=== PATIENT | female | born 1970 | race Caucasian/White ===

== ENCOUNTER 2021-08-27 12:55 | Inpatient (IN) | payer BC ==
[2021-08-27] MEDS ORDERED: Sodium Chloride 0.9% 1,000 ML IV ONE (13:13)
[2021-08-27] MEDS ORDERED: Dexamethasone 4 MG/ML SDV IVPUSH ONE (13:14)
[2021-08-27] MEDS ORDERED: Ketorolac 30 MG/ML SDV IVPUSH ONE (13:42)
[2021-08-27] MEDS ORDERED: Ketorolac 30 MG/ML SDV ONE (13:43)
--- NOTE | 2021-08-27 13:55 | CR ---
[id number] RAD/RAD Chest PA or AP 1V EXAM: FRONTAL CHEST INDICATION: DYSPNEA. COMPARISON: None. DISCUSSION: Bilateral patchy bilateral airspace edema and/or infiltrates. Cardiomegaly with mild central vascular congestion. No effusions. IMPRESSION: 1. Patchy bilateral airspace edema and/or infiltrates. Titi Olson MD 08/27/21 [id number] Thank you for allowing us to participate in the care of your patient.
[2021-08-27 14:00] LABS: ANION GAP 16.4 mmol/L (5-15); CHLORIDE,CL 99 mmol/L (98-107); SODIUM,NA 139 mmol/L (136-145)
--- NOTE | 2021-08-27 14:40 | EDM.PDOC ---
ED HPI GENERAL MEDICAL PROBLEM - General Chief Complaint: General Stated Complaint: COVID Time Seen by Provider: 08/27/21 13:38 Source of Information: Reports: Patient History Limitations: Reports: No Limitations - History of Present Illness INITIAL COMMENTS - FREE TEXT/NARRATIVE: 50 YO WF PRESENTS TO ER COMPLAINING OF SHORTNESS OF BREATH WITH FEVER/CHILLS, BODY ACHES AND GENERALIZED WEAKNESS. PT REPORTS SHE BEGAN HAVING SYMPTOMS 08/15/2021 AND WAS DIAGNOSED WITH COVID BY ANTIGEN TEST ON 08/18/2021. PT DENIES GETTING VACCINATED OR RECEIVING MONOCLONAL ANTIBODIES AN OUTPATIENT. PT REPORTS INTERMITTENT EPISODES OF N/V/D. PT STATES SHE FEELS WORSE OVER THE LAST COUPLE OF DAYS. PT HAD A TELEMEDICINE APPOINTMENT TODAY AN WAS INSTRUCTED TO COME TO ER FOR IVF THERAPY. SAO2 ON ARRIVAL WAS 88% RA, Onset Date: 08/15/21 Duration: Getting Worse Location: Reports: Generalized Quality: Reports: Ache Severity: Moderate Improves with: Reports: Medication Worsens with: Reports: Movement Associated Symptoms: Reports: No Other Symptoms, Cough, Fever/Chills, Nausea/Vomiting, Shortness of Breath, Weakness. Denies: Chest Pain Face/Facial Pain Score (Numeric/FACES): 10 - Related Data Allergies Allergy/AdvReac Type Severity Reaction Status Date / Time No Known Allergies Allergy Verified 08/27/21 15:18 Home Meds: Home Meds Famotidine 20 mg PO DAILY 08/27/21 [History] Past Medical History HEENT History: Reports: Epistaxis, Impaired Vision, Sinusitis Gastrointestinal History: Reports: None Genitourinary History: Reports: None HOG SCRAPER History: Reports: Other HOG SCRAPER History: changing menses - feels is perimenopausal Musculoskeletal History: Reports: Fracture Other Musculoskeletal History: L ankle Hematologic History: Reports: Anemia - Infectious Disease History Infectious Disease History: Reports: Chicken Pox - Past Surgical History HEENT Surgical History: Reports: Oral Surgery GI Surgical History: Reports: Cholecystectomy Other GI Surgeries/Procedures: 2008 Female Surgical History: Reports: Section Social & Family History - Tobacco Use Tobacco Use Status *Q: Never Tobacco User - Caffeine Use Caffeine Use: Reports: None - Recreational Drug Use Recreational Drug Use: No ED ROS GENERAL - Review of Systems Review Of Systems: See Below Constitutional: Reports: Fever, Chills, Malaise, Weakness HEENT: Reports: Rhinitis, Throat Pain Respiratory: Reports: Shortness of Breath, Cough Cardiovascular: Reports: No Symptoms Endocrine: Reports: No Symptoms GI/Abdominal: Reports: Diarrhea, Nausea, Vomiting. Denies: Abdominal Pain : Reports: No Symptoms Musculoskeletal: Reports: Muscle Pain Skin: Reports: No Symptoms Neurological: Reports: No Symptoms Psychiatric: Reports: No Symptoms Hematologic/Lymphatic: Reports: No Symptoms Immunologic: Reports: No Symptoms ED EXAM, GENERAL - Physical Exam Exam: See Below Exam Limited By: No Limitations General Appearance: Alert, WD/WN, No Apparent Distress Ears: Normal External Exam, Normal Canal, Hearing Grossly Normal, Normal TMs Ear Exam: Bilateral Ear: Auricle Normal, Canal Normal, TM normal Nose: Clear Rhinorrhea Throat/Mouth: Normal Inspection, Normal Lips, Normal Teeth, Normal Gums, Normal Oropharynx, Normal Voice, No Airway Compromise Head: Atraumatic, Normocephalic Neck: Normal Inspection, Supple, Full Range of Motion, Lymphadenopathy (L), Lymphadenopathy (R), Tender Lateral Respiratory/Chest: No Respiratory Distress, Lungs Clear, Normal Breath Sounds, No Accessory Muscle Use, Chest Non-Tender, Decreased Breath Sounds Cardiovascular: Normal Peripheral Pulses, Regular Rate, Rhythm, No Edema, No Gallop, No JVD, No Murmur, No Rub GI/Abdominal: Normal Bowel Sounds, Soft, Non-Tender, No Organomegaly, No Distention, No Abnormal Bruit, No Mass Back Exam: Normal Inspection, Full Range of Motion, NT Extremities: Normal Inspection, Normal Range of Motion, Non-Tender, Normal Capillary Refill, No Pedal Edema Neurological: Alert, Oriented, CN II-XII Intact, Normal Cognition, Normal Gait, No Motor/Sensory Deficits Psychiatric: Normal Affect, Normal Mood Skin Exam: Warm, Dry, Intact, Normal Color, No Rash Course - Vital Signs Last Recorded V/S: Last Vital Signs Temp 97.5 F 08/27/21 15:18 Pulse 99 08/27/21 15:39 Resp 24 H 08/27/21 15:39 BP 123/85 08/27/21 15:39 Pulse Ox 92 L 08/27/21 15:39 - Orders/Labs/Meds Orders: Active Orders 24 hr Category Date Time Status LIPASE [REF] Stat Lab 08/27/21 13:13 Ordered Sodium Chloride 0.9% [Normal Saline] 100 ml Med 08/27/21 15:00 Active IV ASDIRECTED Medication Orders Sodium Chloride (Normal Saline) 100 mls @ 200 mls/hr IV ASDIRECTED NEO Last Admin: 08/27/21 15:42 Dose: 200 mls/hr Documented by: JUSTICE Labs: Laboratory Tests 08/27/21 08/27/21 08/27/21 Range/Units 13:33 13:33 13:33 WBC 7.34 (5.00-10.00) 10^3/uL RBC 5.37 (3.80-5.50) 10^6/uL Hgb 15.2 (12.0-16.0) g/dL Hct 47.1 H (37.0-47.0) % MCV 87.7 D (82.0-92.0) fL MCH 28.3 (27.0-31.0) pg MCHC 32.3 (32.0-36.0) g/dL RDW 14.4 (11.5-14.5) % Plt Count 227 (150-400) 10^3/uL MPV 9.5 (7.4-10.4) fL Immature Gran % (Auto) 2.0 (0.0-5.0) % Neut % (Auto) 84.8 H (50.0-70.0) % Lymph % (Auto) 7.8 L (20.0-40.0) % Nicol[place] % (Auto) 5.4 (2.0-8.0) % Eos % (Auto) 0.0 L (1.0-3.0) % Baso % (Auto) 0.0 (0.0-1.0) % Neut # (Auto) 6.22 (2.50-7.00) 10^3/uL Lymph # (Auto) 0.57 L (1.00-4.00) 10^3/uL Nicollet # (Auto) 0.40 (0.10-0.80) 10^3/uL Eos # (Auto) 0.00 L (0.10-0.30) 10^3/uL Baso # (Auto) 0.00 (0.00-0.10) 10^3/uL Immature Gran # (Auto) 0.15 (0.00-0.50) 10^3/uL D-Dimer, Quantitative (<400) ng/mL Sodium 139 (136-145) mmol/L Potassium 3.4 L (3.5-5.1) mmol/L Chloride 99 (98-107) mmol/L Carbon Dioxide 27.0 (21.0-32.0) mmol/L Anion Gap 16.4 H (5-15) mmol/L BUN 20 H (7-18) mg/dL Creatinine 0.76 (0.51-1.17) mg/dL Est Cr Clr Drug Dosing 77.92 mL/min Estimated GFR (MDRD) > 60 mL/min Glucose 99 (70-140) mg/dL Lactic Acid 1.3 (0.4-2.0) mmol/L Calcium 8.4 L (8.7-10.3) mg/dL Total Bilirubin 0.9 (0.2-1.0) mg/dL AST 119 H (15-37) U/L ALT 118 H (14-63) U/L Alkaline Phosphatase 210 H (46-116) U/L Total Protein 7.3 (6.4-8.2) g/dL Albumin 2.62 L (3.40-5.00) g/dL 08/27/21 Range/Units 13:33 WBC (5.00-10.00) 10^3/uL RBC (3.80-5.50) 10^6/uL Hgb (12.0-16.0) g/dL Hct (37.0-47.0) % MCV (82.0-92.0) fL MCH (27.0-31.0) pg MCHC (32.0-36.0) g/dL RDW (11.5-14.5) % Plt Count (150-400) 10^3/uL MPV (7.4-10.4) fL Immature Gran % (Auto) (0.0-5.0) % Neut % (Auto) (50.0-70.0) % Lymph % (Auto) (20.0-40.0) % Nicollet % (Auto) (2.0-8.0) % Eos % (Auto) (1.0-3.0) % Baso % (Auto) (0.0-1.0) % Neut # (Auto) (2.50-7.00) 10^3/uL Lymph # (Auto) (1.00-4.00) 10^3/uL Nicollet # (Auto) (0.10-0.80) 10^3/uL Eos # (Auto) (0.10-0.30) 10^3/uL Baso # (Auto) (0.00-0.10) 10^3/uL Immature Gran # (Auto) (0.00-0.50) 10^3/uL D-Dimer, Quantitative 1200 H (<400) ng/mL Sodium (136-145) mmol/L Potassium (3.5-5.1) mmol/L Chloride (98-107) mmol/L Carbon Dioxide (21.0-32.0) mmol/L Anion Gap (5-15) mmol/L BUN (7-18) mg/dL Creatinine (0.51-1.17) mg/dL Est Cr Clr Drug Dosing mL/min Estimated GFR (MDRD) mL/min Glucose (70-140) mg/dL Lactic Acid (0.4-2.0) mmol/L Calcium (8.7-10.3) mg/dL Total Bilirubin (0.2-1.0) mg/dL AST (15-37) U/L ALT (14-63) U/L Alkaline Phosphatase (46-116) U/L Total Protein (6.4-8.2) g/dL Albumin (3.40-5.00) g/dL Meds: Medications Generic Name Dose Route Start Last Admin Trade Name Freq PRN Reason Stop Dose Admin Sodium Chloride 100 mls @ 200 mls/hr 08/27/21 15:00 08/27/21 15:42 Normal Saline IV 200 mls/hr ASDIRECTED NEO Administration Discontinued Medications Generic Name Dose Route Start Last Admin Trade Name Freq PRN Reason Stop Dose Admin Dexamethasone 6 mg 08/27/21 13:14 08/27/21 13:48 Dexamethasone 4 Mg/Ml Sdv IVPUSH 08/27/21 13:15 6 mg ONETIME ONE Administration Sodium Chloride 1,000 mls @ 999 mls/hr 08/27/21 13:13 08/27/21 13:25 Normal Saline IV 08/27/21 14:13 999 mls/hr .BOLUS ONE Administration Iopamidol 75 ml 08/27/21 14:48 08/27/21 15:42 Iopamidol 755 Mg/Ml 75 Ml Bottle IVPUSH 08/27/21 14:49 75 ml ONETIME ONE Administration Ketorolac Tromethamine 30 mg 08/27/21 13:42 08/27/21 13:48 Ketorolac 30 Mg/Ml Sdv IVPUSH 08/27/21 13:43 30 mg ONETIME ONE Administration Ketorolac Tromethamine Confirm 08/27/21 13:43 08/27/21 13:49 Ketorolac 30 Mg/Ml Sdv Administered 08/27/21 13:44 Not Given Dose 30 mg .ROUTE .[facility] ONE - Radiology Interpretation Free Text/Narrative:: CXR- INTERSTITIAL INFILTRATES CTA CHEST- NO PE; GROUND GLASS INFILTRATES CONSISTENT WITH COVID PNEUMONIA Departure - Departure Time of Disposition: 16:15 Disposition: Admitted As Inpatient 64 Condition: Fair Clinical Impression: Pneumonia due to COVID-19 virus, Elevated LFTs, Hypoxemia, Viral syndrome - Discharge Information Referrals: Isha Perez MD [Primary Care Provider] - Forms: ED Department Discharge Sepsis Event Note (ED) - Evaluation Sepsis Screening Result: No Definite Risk - Focused Exam Vital Signs: Vital Signs Temp Pulse Resp BP Pulse Ox 08/27/21 15:39 99 24 H 123/85 92 L 08/27/21 15:18 97.5 F 96 24 H 106/79 93 L 08/27/21 14:03 97.3 F 103 H 25 H 128/91 H 96 08/27/21 13:00 97.5 F 101 H 22 H 116/85 85 L - My Orders Last 24 Hours: My Active Orders 08/27/21 13:13 LIPASE [REF] Stat 08/27/21 15:00 Sodium Chloride 0.9% [Normal Saline] 100 ml IV ASDIRECTED - Assessment/Plan Last 24 Hours: My Active Orders 08/27/21 13:13 LIPASE [REF] Stat 08/27/21 15:00 Sodium Chloride 0.9% [Normal Saline] 100 ml IV ASDIRECTED Assessment:: 1. COVID PNEUMONIA 2. HYPOEMIA 3. ELEVATED LFT'S 4. VIRAL SYNDROME Plan: 1. ADMIT TO MEDICINE- DR PINA ACCEPTED @[id number] 2. SUPPLEMENTAL O2 3. IVF 4. DECADRON 6MG IV DAILY
[2021-08-27] MEDS ORDERED: Iopamidol 755 Mg/ML 75 ML Bottle IVPUSH ONE (14:48)
[2021-08-27] MEDS ORDERED: Sodium Chloride 0.9% 100 ML IV SCH (15:00)
--- NOTE | 2021-08-27 15:58 | CT ---
[id number] CT/CTA Chest EXAM: CT ANGIOGRAM CHEST INDICATION: DYSPNEA. COMPARISON: None. DISCUSSION: The pulmonary arteries are normal in appearance with no emboli identified. There are extensive bilateral peripheral predominant groundglass opacities. These are nonspecific, but could be seen in the context of infection including COVID pneumonia. Scattered noncalcified pulmonary nodules the largest of which is about 7 mm left upper lobe image 16 series 3.No pleural or pericardial effusion. Normal heart size. No mediastinal, hilar or axillary lymphadenopathy. Cholecystectomy. IMPRESSION: 1. Extensive bilateral groundglass infiltrates. 2. Negative for pulmonary emboli. Titi Olson MD 08/27/21 [id number] Thank you for allowing us to participate in the care of your patient.
[2021-08-27] MEDS ORDERED: Ibuprofen 600 MG Tab PO PRN (16:23)
[2021-08-27] MEDS ORDERED: Morphine 2 MG/ML SYRINGE IVPUSH PRN (16:23)
[2021-08-27] MEDS ORDERED: Sodium Chloride 0.9% 10 ML Syringe FLUSH PRN (16:23)
[2021-08-27] MEDS ORDERED: REMDESIVIR 200 MG in Sodium Chloride 0.9% 250 ML IV ONE (16:26)
[2021-08-27] MEDS: Sodium Chloride 0.9% 1,000 ML IV SCH (17:11)
[2021-08-27] MEDS: Zinc (Zinc Gluconate) 50 MG Tab PO SCH (17:17)
[2021-08-27] MEDS: Cholecalciferol (Vitamin D3) 25 MCG Tab PO SCH (17:17)
[2021-08-27] MEDS: Acetaminophen 325 MG Tab PO PRN (19:46)
[2021-08-27] MEDS: Ascorbic Acid 500 MG Tab PO SCH (20:00)
[2021-08-28] MEDS: Aluminum Hydroxide/Magnesium Hydroxide/Simethicone Susp 30 ML Cup PO PRN (01:20)
[2021-08-28] MEDS: Sodium Chloride 0.9% 1,000 ML IV SCH ×3 (01:21→17:52)
[2021-08-28] MEDS: Cholecalciferol (Vitamin D3) 25 MCG Tab PO SCH (08:30)
[2021-08-28] MEDS: Dexamethasone 10 MG/ML SDV IVPUSH SCH (08:30)
[2021-08-28] MEDS: Zinc (Zinc Gluconate) 50 MG Tab PO SCH (08:30)
[2021-08-28] MEDS: Ascorbic Acid 500 MG Tab PO SCH ×2 (08:30→21:48)
[2021-08-28 09:36] LABS: ANION GAP 15.9 mmol/L (5-15); CHLORIDE,CL 108 mmol/L (98-107); SODIUM,NA 143 mmol/L (136-145)
--- NOTE | 2021-08-28 11:48 | PCM.PN ---
- General Info Date of Service: 08/28/21 Admission Dx/Problem (Free Text): Nohelia was admitted from the emergency department secondary of hypoxemia with associated COVID-19 diagnosis. Chest x-ray showed congestive pattern suggestive of her COVID-19 diagnosis/viral pneumonia. She had elevated liver enzymes on her emergency department work-up with no elevation of her white blood cell count. Elevated D-dimer with PE study performed ruling out pulmonary embolus. She has had associated symptoms since 15 August with a confirmed diagnosis 18 August 2021. Functional Status: Reports: Pain Controlled - Review of Systems General: Reports: No Symptoms HEENT: Reports: No Symptoms Pulmonary: Reports: Shortness of Breath, Cough. Denies: Sputum Cardiovascular: Reports: No Symptoms Gastrointestinal: Reports: No Symptoms Genitourinary: Reports: No Symptoms Musculoskeletal: Reports: Neck Pain, Shoulder Pain, Back Pain, Leg Pain, Joint Pain, Other (Neck pain) Skin: Reports: No Symptoms Neurological: Reports: No Symptoms Psychiatric: Reports: No Symptoms - Patient Data Vitals - Most Recent: Last Vital Signs Temp 97.8 F 08/28/21 11:00 Pulse 76 08/28/21 11:00 Resp 24 H 08/28/21 11:00 BP 117/75 08/28/21 11:00 Pulse Ox 87 L 08/28/21 11:00 Weight - Most Recent: 180 lb I&O - Last 24 Hours: Intake & Output 08/27/21 08/28/21 08/28/21 22:59 06:59 14:59 Intake Total 1130 1954 Balance 1130 1954 Imaging Impressions - Last 24 Hours: Viral pneumonia pattern Lab Results Last 24 Hours: Laboratory Results - last 24 hr 08/27/21 08/27/21 08/27/21 Range/Units 13:33 13:33 13:33 WBC 7.34 (5.00-10.00) 10^3/uL RBC 5.37 (3.80-5.50) 10^6/uL Hgb 15.2 (12.0-16.0) g/dL Hct 47.1 H (37.0-47.0) % MCV 87.7 D (82.0-92.0) fL MCH 28.3 (27.0-31.0) pg MCHC 32.3 (32.0-36.0) g/dL RDW 14.4 (11.5-14.5) % Plt Count 227 (150-400) 10^3/uL MPV 9.5 (7.4-10.4) fL Immature Gran % (Auto) 2.0 (0.0-5.0) % Neut % (Auto) 84.8 H (50.0-70.0) % Lymph % (Auto) 7.8 L (20.0-40.0) % [place] % (Auto) 5.4 (2.0-8.0) % Eos % (Auto) 0.0 L (1.0-3.0) % Baso % (Auto) 0.0 (0.0-1.0) % Neut # (Auto) 6.22 (2.50-7.00) 10^3/uL Lymph # (Auto) 0.57 L (1.00-4.00) 10^3/uL [place] # (Auto) 0.40 (0.10-0.80) 10^3/uL Eos # (Auto) 0.00 L (0.10-0.30) 10^3/uL Baso # (Auto) 0.00 (0.00-0.10) 10^3/uL Immature Gran # (Auto) 0.15 (0.00-0.50) 10^3/uL D-Dimer, Quantitative (<400) ng/mL Sodium 139 (136-145) mmol/L Potassium 3.4 L (3.5-5.1) mmol/L Chloride 99 (98-107) mmol/L Carbon Dioxide 27.0 (21.0-32.0) mmol/L Anion Gap 16.4 H (5-15) mmol/L BUN 20 H (7-18) mg/dL Creatinine 0.76 (0.51-1.17) mg/dL Est Cr Clr Drug Dosing 77.92 mL/min Estimated GFR (MDRD) > 60 mL/min Glucose 99 (70-140) mg/dL Lactic Acid 1.3 (0.4-2.0) mmol/L Calcium 8.4 L (8.7-10.3) mg/dL Total Bilirubin 0.9 (0.2-1.0) mg/dL AST 119 H (15-37) U/L ALT 118 H (14-63) U/L Alkaline Phosphatase 210 H (46-116) U/L Total Protein 7.3 (6.4-8.2) g/dL Albumin 2.62 L (3.40-5.00) g/dL 08/27/21 08/28/21 Range/Units 13:33 08:55 WBC (5.00-10.00) 10^3/uL RBC (3.80-5.50) 10^6/uL Hgb (12.0-16.0) g/dL Hct (37.0-47.0) % MCV (82.0-92.0) fL MCH (27.0-31.0) pg MCHC (32.0-36.0) g/dL RDW (11.5-14.5) % Plt Count (150-400) 10^3/uL MPV (7.4-10.4) fL Immature Gran % (Auto) (0.0-5.0) % Neut % (Auto) (50.0-70.0) % Lymph % (Auto) (20.0-40.0) % [place] % (Auto) (2.0-8.0) % Eos % (Auto) (1.0-3.0) % Baso % (Auto) (0.0-1.0) % Neut # (Auto) (2.50-7.00) 10^3/uL Lymph # (Auto) (1.00-4.00) 10^3/uL [place] # (Auto) (0.10-0.80) 10^3/uL Eos # (Auto) (0.10-0.30) 10^3/uL Baso # (Auto) (0.00-0.10) 10^3/uL Immature Gran # (Auto) (0.00-0.50) 10^3/uL D-Dimer, Quantitative 1200 H (<400) ng/mL Sodium 143 (136-145) mmol/L Potassium 3.7 (3.5-5.1) mmol/L Chloride 108 H (98-107) mmol/L Carbon Dioxide 22.8 (21.0-32.0) mmol/L Anion Gap 15.9 H (5-15) mmol/L BUN 17 (7-18) mg/dL Creatinine 0.56 (0.51-1.17) mg/dL Est Cr Clr Drug Dosing 105.74 mL/min Estimated GFR (MDRD) > 60 mL/min Glucose 124 (70-140) mg/dL Lactic Acid (0.4-2.0) mmol/L Calcium 7.7 L (8.7-10.3) mg/dL Total Bilirubin 0.6 (0.2-1.0) mg/dL AST 117 H (15-37) U/L ALT 123 H (14-63) U/L Alkaline Phosphatase 196 H (46-116) U/L Total Protein 6.5 (6.4-8.2) g/dL Albumin 2.28 L (3.40-5.00) g/dL Med Orders - Current: Current Medications Acetaminophen (Acetaminophen 325 Mg Tab) 650 mg PO Q4H PRN PRN Reason: Pain (Mild 1-3)/fever Last Admin: 08/27/21 19:46 Dose: 650 mg Documented by: Al Hydroxide/Mg Hydroxide (Aluminum Hydroxide/Magnesium Hydroxide/Simethicone Susp 30 Ml Cup) 30 ml PO Q6H PRN PRN Reason: Heartburn Last Admin: 08/28/21 01:20 Dose: 30 ml Documented by: Albuterol/Ipratropium (Albuterol/Ipratropium 3.0-0.5 Mg/3 Ml Neb Soln) 3 ml NEB Q4H PRN PRN Reason: Shortness Of Breath/wheezing Ascorbic Acid (Ascorbic Acid 500 Mg Tab) 1,000 mg PO BID [facility] Last Admin: 08/28/21 08:30 Dose: 1,000 mg Documented by: Cholecalciferol (Cholecalciferol (Vitamin D3) 25 Mcg Tab) 25 mcg PO DAILY [facility] Last Admin: 08/28/21 08:30 Dose: 25 mcg Documented by: Dexamethasone (Dexamethasone 10 Mg/Ml Sdv) 6 mg IVPUSH DAILY [facility] Last Admin: 08/28/21 08:30 Dose: 6 mg Documented by: Enoxaparin Sodium (Enoxaparin 40 Mg/0.4 Ml Syringe) 40 mg SUBCUT Q12H [facility] Sodium Chloride (Normal Saline) 1,000 mls @ 125 mls/hr IV ASDIRECTED [facility] Last Admin: 08/28/21 09:32 Dose: 125 mls/hr Documented by: Remdesivir 100 mg/ Sodium (Chloride) 250 mls @ 250 mls/hr IV Q24H [facility] Ibuprofen (Ibuprofen 600 Mg Tab) 600 mg PO Q6H PRN PRN Reason: Pain (mild 1-3) Morphine Sulfate (Morphine 2 Mg/Ml Syringe) 2 mg IVPUSH Q2H PRN PRN Reason: Pain (severe 7-10) Sodium Chloride (Sodium Chloride 0.9% 10 Ml Syringe) 10 ml FLUSH Q8HR PRN PRN Reason: keep vein open Zinc Gluconate (Zinc (Zinc Gluconate) 50 Mg Tab) 50 mg PO DAILY [facility] Last Admin: 08/28/21 08:30 Dose: 50 mg Documented by: Discontinued Medications Dexamethasone (Dexamethasone 4 Mg/Ml Sdv) 6 mg IVPUSH ONETIME ONE Stop: 08/27/21 13:15 Last Admin: 08/27/21 13:48 Dose: 6 mg Documented by: Dexamethasone (Dexamethasone 10 Mg/Ml Sdv) 6 mg IVPUSH ONETIME ONE Stop: 08/28/21 16:27 Sodium Chloride (Normal Saline) 1,000 mls @ 999 mls/hr IV .BOLUS ONE Stop: 08/27/21 14:13 Last Admin: 08/27/21 13:25 Dose: 999 mls/hr Documented by: Sodium Chloride (Normal Saline) 100 mls @ 200 mls/hr IV ASDIRECTED [facility] Last Admin: 08/27/21 15:42 Dose: 200 mls/hr Documented by: Remdesivir 200 mg/ Sodium (Chloride) 250 mls @ 250 mls/hr IV ONETIME ONE Stop: 08/27/21 16:27 Last Admin: 08/27/21 17:14 Dose: 250 mls/hr Documented by: Iopamidol (Iopamidol 755 Mg/Ml 75 Ml Bottle) 75 ml IVPUSH ONETIME ONE Stop: 08/27/21 14:49 Last Admin: 08/27/21 15:42 Dose: 75 ml Documented by: Ketorolac Tromethamine (Ketorolac 30 Mg/Ml Sdv) 30 mg IVPUSH ONETIME ONE Stop: 08/27/21 13:43 Last Admin: 08/27/21 13:48 Dose: 30 mg Documented by: Ketorolac Tromethamine (Ketorolac 30 Mg/Ml Sdv) Confirm Administered Dose 30 mg .ROUTE .STK-MED ONE Stop: 08/27/21 13:44 Last Admin: 08/27/21 13:49 Dose: Not Given Documented by: - Exam Quality Assessment: Supplemental Oxygen General: Alert, Oriented, Cooperative HEENT: Pupils Equal, Pupils Reactive, Mucous Membr. Moist/[place] Neck: Supple, Trachea Midline, No JVD, Lymphadenopathy (Anterior with tenderness) Lungs: Clear to Auscultation, Decreased Breath Sounds (At the bases bilateral.), Rhonchi (Base). No: Crackles, Rales Cardiovascular: Regular Rate, Regular Rhythm GI/Abdominal Exam: Normal Bowel Sounds, Soft, Non-Tender, No Distention (Female) Exam: Deferred Back Exam: Normal Inspection Extremities: Normal Inspection, Normal Range of Motion, Non-Tender (+1 pedal edema) Skin: Warm, Dry, Intact Neurological: No New Focal Deficit Psy/Mental Status: Alert, Normal Affect, Normal Mood Physical Findings Comments:: She appears ill with no cyanosis nor pallor. She has been up ambulating in the room with some attributed shortness of breath and the requirement for supplemental oxygen continues. She has been as high as 5 L at this time on 3 L with saturation in the low 90s. She received infusion of remdesivir yesterday as well as Decadron and today we will continue that with IV fluid of normal saline at 125 mL's per hour. We will implement Lovenox 40 mg twice daily subcutaneously secondary of her elevated D-dimer, as well as more bedrest time while hospitalized ambulating in the room as able. - Patient Data Lab Results Last 24 hrs: Laboratory Results - last 24 hr 08/27/21 08/27/21 08/27/21 Range/Units 13:33 13:33 13:33 WBC 7.34 (5.00-10.00) 10^3/uL RBC 5.37 (3.80-5.50) 10^6/uL Hgb 15.2 (12.0-16.0) g/dL Hct 47.1 H (37.0-47.0) % MCV 87.7 D (82.0-92.0) fL MCH 28.3 (27.0-31.0) pg MCHC 32.3 (32.0-36.0) g/dL RDW 14.4 (11.5-14.5) % Plt Count 227 (150-400) 10^3/uL MPV 9.5 (7.4-10.4) fL Immature Gran % (Auto) 2.0 (0.0-5.0) % Neut % (Auto) 84.8 H (50.0-70.0) % Lymph % (Auto) 7.8 L (20.0-40.0) % [place] % (Auto) 5.4 (2.0-8.0) % Eos % (Auto) 0.0 L (1.0-3.0) % Baso % (Auto) 0.0 (0.0-1.0) % Neut # (Auto) 6.22 (2.50-7.00) 10^3/uL Lymph # (Auto) 0.57 L (1.00-4.00) 10^3/uL [place] # (Auto) 0.40 (0.10-0.80) 10^3/uL Eos # (Auto) 0.00 L (0.10-0.30) 10^3/uL Baso # (Auto) 0.00 (0.00-0.10) 10^3/uL Immature Gran # (Auto) 0.15 (0.00-0.50) 10^3/uL D-Dimer, Quantitative (<400) ng/mL Sodium 139 (136-145) mmol/L Potassium 3.4 L (3.5-5.1) mmol/L Chloride 99 (98-107) mmol/L Carbon Dioxide 27.0 (21.0-32.0) mmol/L Anion Gap 16.4 H (5-15) mmol/L BUN 20 H (7-18) mg/dL Creatinine 0.76 (0.51-1.17) mg/dL Est Cr Clr Drug Dosing 77.92 mL/min Estimated GFR (MDRD) > 60 mL/min Glucose 99 (70-140) mg/dL Lactic Acid 1.3 (0.4-2.0) mmol/L Calcium 8.4 L (8.7-10.3) mg/dL Total Bilirubin 0.9 (0.2-1.0) mg/dL AST 119 H (15-37) U/L ALT 118 H (14-63) U/L Alkaline Phosphatase 210 H (46-116) U/L Total Protein 7.3 (6.4-8.2) g/dL Albumin 2.62 L (3.40-5.00) g/dL 08/27/21 08/28/21 Range/Units 13:33 08:55 WBC (5.00-10.00) 10^3/uL RBC (3.80-5.50) 10^6/uL Hgb (12.0-16.0) g/dL Hct (37.0-47.0) % MCV (82.0-92.0) fL MCH (27.0-31.0) pg MCHC (32.0-36.0) g/dL RDW (11.5-14.5) % Plt Count (150-400) 10^3/uL MPV (7.4-10.4) fL Immature Gran % (Auto) (0.0-5.0) % Neut % (Auto) (50.0-70.0) % Lymph % (Auto) (20.0-40.0) % [place] % (Auto) (2.0-8.0) % Eos % (Auto) (1.0-3.0) % Baso % (Auto) (0.0-1.0) % Neut # (Auto) (2.50-7.00) 10^3/uL Lymph # (Auto) (1.00-4.00) 10^3/uL [place] # (Auto) (0.10-0.80) 10^3/uL Eos # (Auto) (0.10-0.30) 10^3/uL Baso # (Auto) (0.00-0.10) 10^3/uL Immature Gran # (Auto) (0.00-0.50) 10^3/uL D-Dimer, Quantitative 1200 H (<400) ng/mL Sodium 143 (136-145) mmol/L Potassium 3.7 (3.5-5.1) mmol/L Chloride 108 H (98-107) mmol/L Carbon Dioxide 22.8 (21.0-32.0) mmol/L Anion Gap 15.9 H (5-15) mmol/L BUN 17 (7-18) mg/dL Creatinine 0.56 (0.51-1.17) mg/dL Est Cr Clr Drug Dosing 105.74 mL/min Estimated GFR (MDRD) > 60 mL/min Glucose 124 (70-140) mg/dL Lactic Acid (0.4-2.0) mmol/L Calcium 7.7 L (8.7-10.3) mg/dL Total Bilirubin 0.6 (0.2-1.0) mg/dL AST 117 H (15-37) U/L ALT 123 H (14-63) U/L Alkaline Phosphatase 196 H (46-116) U/L Total Protein 6.5 (6.4-8.2) g/dL Albumin 2.28 L (3.40-5.00) g/dL Result Diagrams: 08/27/21 13:33 08/28/21 08:55 Sepsis Event Note - Evaluation Sepsis Screening Result: No Definite Risk - Focused Exam Vital Signs: Vital Signs Temp Pulse Resp BP Pulse Ox 08/28/21 11:00 97.8 F 76 24 H 117/75 87 L 08/28/21 06:00 97.8 F 90 24 H 123/84 87 L 08/28/21 02:51 93 L 08/28/21 02:02 92 L 08/28/21 01:37 97.6 F 69 20 137/92 H 90 L - Problem List & Annotations (1) Elevated d-dimer SNOMED Code(s): 127516386 Code(s): R79.89 - OTHER SPECIFIED ABNORMAL FINDINGS OF BLOOD CHEMISTRY Status: Acute Priority: High Current Visit: Yes (2) Elevated LFTs SNOMED Code(s): 739862016 Code(s): R79.89 - OTHER SPECIFIED ABNORMAL FINDINGS OF BLOOD CHEMISTRY Status: Acute Priority: High Current Visit: Yes (3) Hypoxemia SNOMED Code(s): 160676986 Code(s): R09.02 - HYPOXEMIA Status: Acute Priority: High Current Visit: Yes (4) Pneumonia due to COVID-19 virus SNOMED Code(s): 437674168267261645 Code(s): U07.1 - COVID-19; J12.82 - PNEUMONIA DUE TO CORONAVIRUS DISEASE 2019 Status: Acute Priority: High Current Visit: Yes (5) Viral syndrome SNOMED Code(s): 23779057 Code(s): B34.9 - VIRAL INFECTION, UNSPECIFIED Status: Acute Priority: High Current Visit: Yes - Problem List Review Problem List Initiated/Reviewed/Updated: Yes - My Orders Last 24 Hours: My Active Orders 08/28/21 11:45 Enoxaparin [Lovenox] 40 mg SUBCUT Q12H 08/29/21 05:11 CBC WITH AUTO DIFF [HEME] DAILY COMPREHENSIVE METABOLIC PN,CMP [CHEM] AM 08/30/21 05:11 CBC WITH AUTO DIFF [HEME] DAILY COMPREHENSIVE METABOLIC PN,CMP [CHEM] AM 08/31/21 05:11 CBC WITH AUTO DIFF [HEME] DAILY COMPREHENSIVE METABOLIC PN,CMP [CHEM] AM 09/01/21 05:11 CBC WITH AUTO DIFF [HEME] DAILY COMPREHENSIVE METABOLIC PN,CMP [CHEM] AM 09/02/21 05:11 CBC WITH AUTO DIFF [HEME] DAILY COMPREHENSIVE METABOLIC PN,CMP [CHEM] AM - Assessment Assessment:: COVID-19 pneumonia. Hypoxemia Elevated D-dimer. Elevated LFTs. - Plan Plan:: She received infusion of remdesivir yesterday as well as Decadron and today we will continue that with IV fluid of normal saline at 125 mL's per hour. We will implement Lovenox 40 mg twice daily subcutaneously secondary of her elevated D-dimer, as well as more bedrest time while hospitalized ambulating in the room as able. We will continue to provide supplemental oxygen as needed maintaining good saturation 92% on average. Lengthy discussion on the aspects that there is no in stone recovery nor treatment for COVID-19. She asked for an honest opinion to which I expressed she will either get over this, improving and being discharged home in the next few days or will be getting worse and consideration for longer hospitalization and even potential transfer to a higher tertiary center for more advanced treatment as sometimes is needed. Both her and her understand that each individual is on a [id number] basis for treatment as well as the recovery as he was positive at roughly the same time as per and as feeling well and having no concerns at this time. Continued for the aforementioned plan and current orders with adjustments to be made on a daily basis.
[2021-08-28] MEDS: Enoxaparin 40 MG/0.4 ML Syringe SUBCUT SCH ×3 (12:34→22:56)
[2021-08-28] MEDS: REMDESIVIR 100 MG in Sodium Chloride 0.9% 250 ML IV SCH (16:10)
[2021-08-28] MEDS ORDERED: Dexamethasone 10 MG/ML SDV IVPUSH ONE (16:26)
[2021-08-29] MEDS: Sodium Chloride 0.9% 1,000 ML IV SCH (03:03)
[2021-08-29] MEDS: Zinc (Zinc Gluconate) 50 MG Tab PO SCH (08:00)
[2021-08-29] MEDS: Cholecalciferol (Vitamin D3) 25 MCG Tab PO SCH (08:00)
[2021-08-29] MEDS: Dexamethasone 10 MG/ML SDV IVPUSH SCH (08:00)
[2021-08-29] MEDS: Ascorbic Acid 500 MG Tab PO SCH ×2 (08:06→20:33)
[2021-08-29 10:26] LABS: ANION GAP 15.1 mmol/L (5-15); CHLORIDE,CL 111 mmol/L (98-107); SODIUM,NA 143 mmol/L (136-145)
--- NOTE | 2021-08-29 11:00 | PCM.PN ---
- General Info Date of Service: 08/29/21 Subjective Update: PT REPORTS FEELING BETTER TODAY. PT SITTING IN CHAIR AT TIME OF EXAM. PT REPORTS MILDLY IMPROVED SHORTNESS OF BREATH. PT DENIES ANY AIR HUNGER. Functional Status: Reports: Tolerating Diet, Ambulating, Incentive Spirometry - Review of Systems General: Reports: No Symptoms HEENT: Reports: Rhinitis Pulmonary: Reports: Shortness of Breath Cardiovascular: Reports: No Symptoms Gastrointestinal: Reports: No Symptoms Genitourinary: Reports: No Symptoms Musculoskeletal: Reports: No Symptoms Skin: Reports: No Symptoms Neurological: Reports: No Symptoms Psychiatric: Reports: No Symptoms - Patient Data Vitals - Most Recent: Last Vital Signs Temp 97.6 F 08/29/21 07:58 Pulse 81 08/29/21 06:40 Resp 22 H 08/29/21 06:40 BP 122/80 08/29/21 06:40 Pulse Ox 94 L 08/29/21 09:00 Weight - Most Recent: 180 lb I&O - Last 24 Hours: Intake & Output 08/28/21 08/29/21 08/29/21 22:59 06:59 14:59 Intake Total 3559 1659 Output Total 400 700 Balance 3159 959 Lab Results Last 24 Hours: Laboratory Results - last 24 hr 08/29/21 08/29/21 Range/Units 10:00 10:00 WBC 11.07 H (5.00-10.00) 10^3/uL RBC 4.89 (3.80-5.50) 10^6/uL Hgb 14.0 (12.0-16.0) g/dL Hct 43.1 (37.0-47.0) % MCV 88.1 (82.0-92.0) fL MCH 28.6 (27.0-31.0) pg MCHC 32.5 (32.0-36.0) g/dL RDW 14.6 H (11.5-14.5) % Plt Count 309 D (150-400) 10^3/uL MPV 9.4 (7.4-10.4) fL Immature Gran % (Auto) 2.3 (0.0-5.0) % Neut % (Auto) 86.5 H (50.0-70.0) % Lymph % (Auto) 5.1 L (20.0-40.0) % [place] % (Auto) 6.0 (2.0-8.0) % Eos % (Auto) 0.0 L (1.0-3.0) % Baso % (Auto) 0.1 (0.0-1.0) % Neut # (Auto) 9.58 H (2.50-7.00) 10^3/uL Lymph # (Auto) 0.56 L (1.00-4.00) 10^3/uL [place] # (Auto) 0.66 (0.10-0.80) 10^3/uL Eos # (Auto) 0.00 L (0.10-0.30) 10^3/uL Baso # (Auto) 0.01 (0.00-0.10) 10^3/uL Immature Gran # (Auto) 0.26 (0.00-0.50) 10^3/uL Sodium 143 (136-145) mmol/L Potassium 3.5 (3.5-5.1) mmol/L Chloride 111 H (98-107) mmol/L Carbon Dioxide 20.4 L (21.0-32.0) mmol/L Anion Gap 15.1 H (5-15) mmol/L BUN 19 H (7-18) mg/dL Creatinine 0.60 (0.51-1.17) mg/dL Est Cr Clr Drug Dosing 98.69 mL/min Estimated GFR (MDRD) > 60 mL/min Glucose 149 H (70-140) mg/dL Calcium 7.4 L (8.7-10.3) mg/dL Total Bilirubin 0.6 (0.2-1.0) mg/dL AST 94 H (15-37) U/L ALT 121 H (14-63) U/L Alkaline Phosphatase 184 H (46-116) U/L Total Protein 6.1 L (6.4-8.2) g/dL Albumin 2.29 L (3.40-5.00) g/dL Med Orders - Current: Current Medications Acetaminophen (Acetaminophen 325 Mg Tab) 650 mg PO Q4H PRN PRN Reason: Pain (Mild 1-3)/fever Last Admin: 08/27/21 19:46 Dose: 650 mg Documented by: Al Hydroxide/Mg Hydroxide (Aluminum Hydroxide/Magnesium Hydroxide/Simethicone Susp 30 Ml Cup) 30 ml PO Q6H PRN PRN Reason: Heartburn Last Admin: 08/28/21 01:20 Dose: 30 ml Documented by: Albuterol/Ipratropium (Albuterol/Ipratropium 3.0-0.5 Mg/3 Ml Neb Soln) 3 ml NEB Q4H PRN PRN Reason: Shortness Of Breath/wheezing Ascorbic Acid (Ascorbic Acid 500 Mg Tab) 1,000 mg PO BID [facility] Last Admin: 08/29/21 08:06 Dose: 1,000 mg Documented by: Cholecalciferol (Cholecalciferol (Vitamin D3) 25 Mcg Tab) 25 mcg PO DAILY [facility] Last Admin: 08/29/21 08:00 Dose: 25 mcg Documented by: Dexamethasone (Dexamethasone 10 Mg/Ml Sdv) 6 mg IVPUSH DAILY [facility] Last Admin: 08/29/21 08:00 Dose: 6 mg Documented by: Enoxaparin Sodium (Enoxaparin 40 Mg/0.4 Ml Syringe) 40 mg SUBCUT Q12H [facility] Last Admin: 08/28/21 22:56 Dose: Not Given Documented by: Remdesivir 100 mg/ Sodium (Chloride) 250 mls @ 250 mls/hr IV Q24H [facility] Last Admin: 08/28/21 16:10 Dose: 250 mls/hr Documented by: Ibuprofen (Ibuprofen 600 Mg Tab) 600 mg PO Q6H PRN PRN Reason: Pain (mild 1-3) Last Admin: 08/29/21 01:14 Dose: 600 mg Documented by: Morphine Sulfate (Morphine 2 Mg/Ml Syringe) 2 mg IVPUSH Q2H PRN PRN Reason: Pain (severe 7-10) Sodium Chloride (Sodium Chloride 0.9% 10 Ml Syringe) 10 ml FLUSH Q8HR PRN PRN Reason: keep vein open Zinc Gluconate (Zinc (Zinc Gluconate) 50 Mg Tab) 50 mg PO DAILY [facility] Last Admin: 08/29/21 08:00 Dose: 50 mg Documented by: Discontinued Medications Dexamethasone (Dexamethasone 4 Mg/Ml Sdv) 6 mg IVPUSH ONETIME ONE Stop: 08/27/21 13:15 Last Admin: 08/27/21 13:48 Dose: 6 mg Documented by: Dexamethasone (Dexamethasone 10 Mg/Ml Sdv) 6 mg IVPUSH ONETIME ONE Stop: 08/28/21 16:27 Sodium Chloride (Normal Saline) 1,000 mls @ 999 mls/hr IV .BOLUS ONE Stop: 08/27/21 14:13 Last Admin: 08/27/21 13:25 Dose: 999 mls/hr Documented by: Sodium Chloride (Normal Saline) 100 mls @ 200 mls/hr IV ASDIRECTED [facility] Last Admin: 08/27/21 15:42 Dose: 200 mls/hr Documented by: Sodium Chloride (Normal Saline) 1,000 mls @ 125 mls/hr IV ASDIRECTED [facility] Last Admin: 08/29/21 03:03 Dose: 125 mls/hr Documented by: Remdesivir 200 mg/ Sodium (Chloride) 250 mls @ 250 mls/hr IV ONETIME ONE Stop: 08/27/21 16:27 Last Admin: 08/27/21 17:14 Dose: 250 mls/hr Documented by: Iopamidol (Iopamidol 755 Mg/Ml 75 Ml Bottle) 75 ml IVPUSH ONETIME ONE Stop: 08/27/21 14:49 Last Admin: 08/27/21 15:42 Dose: 75 ml Documented by: Ketorolac Tromethamine (Ketorolac 30 Mg/Ml Sdv) 30 mg IVPUSH ONETIME ONE Stop: 08/27/21 13:43 Last Admin: 08/27/21 13:48 Dose: 30 mg Documented by: Ketorolac Tromethamine (Ketorolac 30 Mg/Ml Sdv) Confirm Administered Dose 30 mg .ROUTE .STK-MED ONE Stop: 08/27/21 13:44 Last Admin: 08/27/21 13:49 Dose: Not Given Documented by: - Exam Quality Assessment: Supplemental Oxygen General: Alert, Oriented HEENT: Pupils Equal, Pupils Reactive, EOMI, Mucous Membr. Moist/[place] Neck: Supple Lungs: Normal Respiratory Effort, Decreased Breath Sounds Cardiovascular: Regular Rate, Regular Rhythm GI/Abdominal Exam: Normal Bowel Sounds, Soft, Non-Tender, No Organomegaly, No Distention, No Abnormal Bruit, No Mass, Pelvis Stable Back Exam: Normal Inspection, Full Range of Motion Extremities: Normal Inspection, Normal Range of Motion, Non-Tender, No Pedal Edema, Normal Capillary Refill Skin: Warm, Dry, Intact Neurological: No New Focal Deficit Psy/Mental Status: Alert, Normal Affect, Normal Mood - Patient Data Lab Results Last 24 hrs: Laboratory Results - last 24 hr 08/29/21 08/29/21 Range/Units 10:00 10:00 WBC 11.07 H (5.00-10.00) 10^3/uL RBC 4.89 (3.80-5.50) 10^6/uL Hgb 14.0 (12.0-16.0) g/dL Hct 43.1 (37.0-47.0) % MCV 88.1 (82.0-92.0) fL MCH 28.6 (27.0-31.0) pg MCHC 32.5 (32.0-36.0) g/dL RDW 14.6 H (11.5-14.5) % Plt Count 309 D (150-400) 10^3/uL MPV 9.4 (7.4-10.4) fL Immature Gran % (Auto) 2.3 (0.0-5.0) % Neut % (Auto) 86.5 H (50.0-70.0) % Lymph % (Auto) 5.1 L (20.0-40.0) % [place] % (Auto) 6.0 (2.0-8.0) % Eos % (Auto) 0.0 L (1.0-3.0) % Baso % (Auto) 0.1 (0.0-1.0) % Neut # (Auto) 9.58 H (2.50-7.00) 10^3/uL Lymph # (Auto) 0.56 L (1.00-4.00) 10^3/uL [place] # (Auto) 0.66 (0.10-0.80) 10^3/uL Eos # (Auto) 0.00 L (0.10-0.30) 10^3/uL Baso # (Auto) 0.01 (0.00-0.10) 10^3/uL Immature Gran # (Auto) 0.26 (0.00-0.50) 10^3/uL Sodium 143 (136-145) mmol/L Potassium 3.5 (3.5-5.1) mmol/L Chloride 111 H (98-107) mmol/L Carbon Dioxide 20.4 L (21.0-32.0) mmol/L Anion Gap 15.1 H (5-15) mmol/L BUN 19 H (7-18) mg/dL Creatinine 0.60 (0.51-1.17) mg/dL Est Cr Clr Drug Dosing 98.69 mL/min Estimated GFR (MDRD) > 60 mL/min Glucose 149 H (70-140) mg/dL Calcium 7.4 L (8.7-10.3) mg/dL Total Bilirubin 0.6 (0.2-1.0) mg/dL AST 94 H (15-37) U/L ALT 121 H (14-63) U/L Alkaline Phosphatase 184 H (46-116) U/L Total Protein 6.1 L (6.4-8.2) g/dL Albumin 2.29 L (3.40-5.00) g/dL Result Diagrams: 08/29/21 10:00 08/29/21 10:00 Sepsis Event Note - Evaluation Sepsis Screening Result: No Definite Risk - Focused Exam Vital Signs: Vital Signs Temp Pulse Resp BP Pulse Ox Pulse Ox 08/29/21 09:00 94 L 08/29/21 07:58 97.6 F 92 L 08/29/21 06:40 97.7 F 81 22 H 122/80 92 L 08/29/21 03:00 98.3 F 72 20 130/89 94 L 08/29/21 01:31 88 L 08/28/21 23:00 98.3 F 77 24 H 121/82 92 L - Problem List Review Problem List Initiated/Reviewed/Updated: Yes - My Orders Last 24 Hours: My Active Orders 08/28/21 16:00 Remdesivir 100 mg Sodium Chloride 0.9% [Normal Saline] 250 ml IV Q24H - Assessment Assessment:: COVID-19 pneumonia. Hypoxemia Elevated D-dimer. Elevated LFTs. - Plan Plan:: 1. INCENTIVE SPIROMETRY 2. PRONING 15MIN X 3/DAY 3. INCREASE ACTIVITY TOLERATED 4. WEAN O2 TOLERATED 5. CONTINUE ZINC/VIT C/VIT D 6. CONTINUE REMDESIVIR/DECADRON/DUONEBS 7. STOP IV FLUIDS
[2021-08-29] MEDS: Enoxaparin 40 MG/0.4 ML Syringe SUBCUT SCH ×3 (12:27→23:11)
[2021-08-29] MEDS: REMDESIVIR 100 MG in Sodium Chloride 0.9% 250 ML IV SCH (17:03)
[2021-08-29] MEDS: Carboxymethylcellulose Sodium 0.5% Ophth Soln 15 ML Bottle EYEBOTH PRN (17:15)
[2021-08-29] MEDS: Acetaminophen 325 MG Tab PO PRN (20:34)
[2021-08-29] MEDS: Aluminum Hydroxide/Magnesium Hydroxide/Simethicone Susp 30 ML Cup PO PRN (20:52)
[2021-08-30] MEDS: Dexamethasone 10 MG/ML SDV IVPUSH SCH (08:04)
[2021-08-30] MEDS: Ascorbic Acid 500 MG Tab PO SCH ×2 (08:04→20:22)
[2021-08-30] MEDS: Zinc (Zinc Gluconate) 50 MG Tab PO SCH (08:04)
[2021-08-30] MEDS: Cholecalciferol (Vitamin D3) 25 MCG Tab PO SCH (08:04)
[2021-08-30] MEDS: Carboxymethylcellulose Sodium 0.5% Ophth Soln 15 ML Bottle EYEBOTH PRN (08:04)
--- NOTE | 2021-08-30 08:12 | PCM.PN ---
- General Info Date of Service: 08/30/21 Subjective Update: PT REPORTS FEELING BETTER TODAY. PT NOT REQUIRING MUCH O2. PT WAS ABLE TO SHOWER ON HER OWN YESTERDAY AND STATES SHE HAS BEEN MORE ACTIVE AND USING HER INCENTIVE SPIROMETER DIRECTED. PT WITH A GOOD APPETITE YESTERDAY AND WAS HAVING BREAKFAST AT TIME OF EXAM. PT WITHOUT ANY COMPLAINTS AND STATES SHE SLEPT THE BEST SHE HAS IN DAYS LAST NIGHT. Functional Status: Reports: Pain Controlled, Tolerating Diet, Ambulating, Incentive Spirometry - Review of Systems General: Reports: Fatigue HEENT: Reports: No Symptoms Pulmonary: Reports: Cough Cardiovascular: Reports: No Symptoms Gastrointestinal: Reports: No Symptoms Genitourinary: Reports: No Symptoms Musculoskeletal: Reports: No Symptoms Skin: Reports: No Symptoms Neurological: Reports: No Symptoms Psychiatric: Reports: No Symptoms - Patient Data Vitals - Most Recent: Last Vital Signs Temp 97.6 F 08/30/21 06:27 Pulse 96 08/30/21 06:27 Resp 20 08/30/21 06:27 BP 128/80 08/30/21 06:27 Pulse Ox 92 L 08/30/21 06:27 Weight - Most Recent: 180 lb I&O - Last 24 Hours: Intake & Output 08/29/21 08/30/21 08/30/21 22:59 06:59 14:59 Intake Total 841 200 Output Total 500 300 Balance 341 -100 Lab Results Last 24 Hours: Laboratory Results - last 24 hr 08/29/21 08/29/21 08/30/21 Range/Units 10:00 10:00 07:20 WBC 11.07 H 9.82 (5.00-10.00) 10^3/uL RBC 4.89 5.12 (3.80-5.50) 10^6/uL Hgb 14.0 14.5 (12.0-16.0) g/dL Hct 43.1 44.9 (37.0-47.0) % MCV 88.1 87.7 (82.0-92.0) fL MCH 28.6 28.3 (27.0-31.0) pg MCHC 32.5 32.3 (32.0-36.0) g/dL RDW 14.6 H 14.5 (11.5-14.5) % Plt Count 309 D 365 (150-400) 10^3/uL MPV 9.4 9.4 (7.4-10.4) fL Immature Gran % (Auto) 2.3 2.4 (0.0-5.0) % Neut % (Auto) 86.5 H 81.3 H (50.0-70.0) % Lymph % (Auto) 5.1 L 8.9 L (20.0-40.0) % [place] % (Auto) 6.0 7.2 (2.0-8.0) % Eos % (Auto) 0.0 L 0.1 L (1.0-3.0) % Baso % (Auto) 0.1 0.1 (0.0-1.0) % Neut # (Auto) 9.58 H 7.98 H (2.50-7.00) 10^3/uL Lymph # (Auto) 0.56 L 0.87 L (1.00-4.00) 10^3/uL [place] # (Auto) 0.66 0.71 (0.10-0.80) 10^3/uL Eos # (Auto) 0.00 L 0.01 L (0.10-0.30) 10^3/uL Baso # (Auto) 0.01 0.01 (0.00-0.10) 10^3/uL Immature Gran # (Auto) 0.26 0.24 (0.00-0.50) 10^3/uL Sodium 143 (136-145) mmol/L Potassium 3.5 (3.5-5.1) mmol/L Chloride 111 H (98-107) mmol/L Carbon Dioxide 20.4 L (21.0-32.0) mmol/L Anion Gap 15.1 H (5-15) mmol/L BUN 19 H (7-18) mg/dL Creatinine 0.60 (0.51-1.17) mg/dL Est Cr Clr Drug Dosing 98.69 mL/min Estimated GFR (MDRD) > 60 mL/min Glucose 149 H (70-140) mg/dL Calcium 7.4 L (8.7-10.3) mg/dL Total Bilirubin 0.6 (0.2-1.0) mg/dL AST 94 H (15-37) U/L ALT 121 H (14-63) U/L Alkaline Phosphatase 184 H (46-116) U/L Total Protein 6.1 L (6.4-8.2) g/dL Albumin 2.29 L (3.40-5.00) g/dL Med Orders - Current: Current Medications Acetaminophen (Acetaminophen 325 Mg Tab) 650 mg PO Q4H PRN PRN Reason: Pain (Mild 1-3)/fever Last Admin: 08/29/21 20:34 Dose: 650 mg Documented by: Al Hydroxide/Mg Hydroxide (Aluminum Hydroxide/Magnesium Hydroxide/Simethicone Susp 30 Ml Cup) 30 ml PO Q6H PRN PRN Reason: Heartburn Last Admin: 08/29/21 20:52 Dose: 30 ml Documented by: Albuterol/Ipratropium (Albuterol/Ipratropium 3.0-0.5 Mg/3 Ml Neb Soln) 3 ml NEB Q4H PRN PRN Reason: Shortness Of Breath/wheezing Artificial Tears (Carboxymethylcellulose Sodium 0.5% Ophth Soln 15 Ml Bottle) 0 ml EYEBOTH ASDIRECTED PRN PRN Reason: Dry Eyes Last Admin: 08/30/21 08:04 Dose: 1 drop Documented by: Ascorbic Acid (Ascorbic Acid 500 Mg Tab) 1,000 mg PO BID [facility] Last Admin: 08/30/21 08:04 Dose: 1,000 mg Documented by: Cholecalciferol (Cholecalciferol (Vitamin D3) 25 Mcg Tab) 25 mcg PO DAILY [facility] Last Admin: 08/30/21 08:04 Dose: 25 mcg Documented by: Dexamethasone (Dexamethasone 10 Mg/Ml Sdv) 6 mg IVPUSH DAILY [facility] Last Admin: 08/30/21 08:04 Dose: 6 mg Documented by: Enoxaparin Sodium (Enoxaparin 40 Mg/0.4 Ml Syringe) 40 mg SUBCUT Q12H [facility] Last Admin: 08/29/21 23:11 Dose: Not Given Documented by: Remdesivir 100 mg/ Sodium (Chloride) 250 mls @ 250 mls/hr IV Q24H [facility] Last Admin: 08/29/21 17:03 Dose: 250 mls/hr Documented by: Ibuprofen (Ibuprofen 600 Mg Tab) 600 mg PO Q6H PRN PRN Reason: Pain (mild 1-3) Last Admin: 08/29/21 01:14 Dose: 600 mg Documented by: Morphine Sulfate (Morphine 2 Mg/Ml Syringe) 2 mg IVPUSH Q2H PRN PRN Reason: Pain (severe 7-10) Sodium Chloride (Sodium Chloride 0.9% 10 Ml Syringe) 10 ml FLUSH Q8HR PRN PRN Reason: keep vein open Zinc Gluconate (Zinc (Zinc Gluconate) 50 Mg Tab) 50 mg PO DAILY [facility] Last Admin: 08/30/21 08:04 Dose: 50 mg Documented by: Discontinued Medications Dexamethasone (Dexamethasone 4 Mg/Ml Sdv) 6 mg IVPUSH ONETIME ONE Stop: 08/27/21 13:15 Last Admin: 08/27/21 13:48 Dose: 6 mg Documented by: Dexamethasone (Dexamethasone 10 Mg/Ml Sdv) 6 mg IVPUSH ONETIME ONE Stop: 08/28/21 16:27 Sodium Chloride (Normal Saline) 1,000 mls @ 999 mls/hr IV .BOLUS ONE Stop: 08/27/21 14:13 Last Admin: 08/27/21 13:25 Dose: 999 mls/hr Documented by: Sodium Chloride (Normal Saline) 100 mls @ 200 mls/hr IV ASDIRECTED [facility] Last Admin: 08/27/21 15:42 Dose: 200 mls/hr Documented by: Sodium Chloride (Normal Saline) 1,000 mls @ 125 mls/hr IV ASDIRECTED [facility] Last Admin: 08/29/21 03:03 Dose: 125 mls/hr Documented by: Remdesivir 200 mg/ Sodium (Chloride) 250 mls @ 250 mls/hr IV ONETIME ONE Stop: 08/27/21 16:27 Last Admin: 08/27/21 17:14 Dose: 250 mls/hr Documented by: Iopamidol (Iopamidol 755 Mg/Ml 75 Ml Bottle) 75 ml IVPUSH ONETIME ONE Stop: 08/27/21 14:49 Last Admin: 08/27/21 15:42 Dose: 75 ml Documented by: Ketorolac Tromethamine (Ketorolac 30 Mg/Ml Sdv) 30 mg IVPUSH ONETIME ONE Stop: 08/27/21 13:43 Last Admin: 08/27/21 13:48 Dose: 30 mg Documented by: Ketorolac Tromethamine (Ketorolac 30 Mg/Ml Sdv) Confirm Administered Dose 30 mg .ROUTE .STK-MED ONE Stop: 08/27/21 13:44 Last Admin: 08/27/21 13:49 Dose: Not Given Documented by: - Exam Quality Assessment: Supplemental Oxygen General: Alert, Oriented HEENT: Pupils Equal, Pupils Reactive, EOMI, Mucous Membr. Moist/[place]ck: Supple Lungs: Normal Respiratory Effort, Crackles Cardiovascular: Regular Rate, Regular Rhythm GI/Abdominal Exam: Normal Bowel Sounds, Soft, Non-Tender, No Organomegaly, No Distention, No Abnormal Bruit, No Mass, Pelvis Stable Back Exam: Normal Inspection, Full Range of Motion Extremities: Normal Inspection, Normal Range of Motion, Non-Tender, No Pedal Edema, Normal Capillary Refill Skin: Warm, Dry, Intact Neurological: No New Focal Deficit Psy/Mental Status: Alert, Normal Affect, Normal Mood - Patient Data Lab Results Last 24 hrs: Laboratory Results - last 24 hr 08/29/21 08/29/21 08/30/21 Range/Units 10:00 10:00 07:20 WBC 11.07 H 9.82 (5.00-10.00) 10^3/uL RBC 4.89 5.12 (3.80-5.50) 10^6/uL Hgb 14.0 14.5 (12.0-16.0) g/dL Hct 43.1 44.9 (37.0-47.0) % MCV 88.1 87.7 (82.0-92.0) fL MCH 28.6 28.3 (27.0-31.0) pg MCHC 32.5 32.3 (32.0-36.0) g/dL RDW 14.6 H 14.5 (11.5-14.5) % Plt Count 309 D 365 (150-400) 10^3/uL MPV 9.4 9.4 (7.4-10.4) fL Immature Gran % (Auto) 2.3 2.4 (0.0-5.0) % Neut % (Auto) 86.5 H 81.3 H (50.0-70.0) % Lymph % (Auto) 5.1 L 8.9 L (20.0-40.0) % [place] % (Auto) 6.0 7.2 (2.0-8.0) % Eos % (Auto) 0.0 L 0.1 L (1.0-3.0) % Baso % (Auto) 0.1 0.1 (0.0-1.0) % Neut # (Auto) 9.58 H 7.98 H (2.50-7.00) 10^3/uL Lymph # (Auto) 0.56 L 0.87 L (1.00-4.00) 10^3/uL [place] # (Auto) 0.66 0.71 (0.10-0.80) 10^3/uL Eos # (Auto) 0.00 L 0.01 L (0.10-0.30) 10^3/uL Baso # (Auto) 0.01 0.01 (0.00-0.10) 10^3/uL Immature Gran # (Auto) 0.26 0.24 (0.00-0.50) 10^3/uL Sodium 143 (136-145) mmol/L Potassium 3.5 (3.5-5.1) mmol/L Chloride 111 H (98-107) mmol/L Carbon Dioxide 20.4 L (21.0-32.0) mmol/L Anion Gap 15.1 H (5-15) mmol/L BUN 19 H (7-18) mg/dL Creatinine 0.60 (0.51-1.17) mg/dL Est Cr Clr Drug Dosing 98.69 mL/min Estimated GFR (MDRD) > 60 mL/min Glucose 149 H (70-140) mg/dL Calcium 7.4 L (8.7-10.3) mg/dL Total Bilirubin 0.6 (0.2-1.0) mg/dL AST 94 H (15-37) U/L ALT 121 H (14-63) U/L Alkaline Phosphatase 184 H (46-116) U/L Total Protein 6.1 L (6.4-8.2) g/dL Albumin 2.29 L (3.40-5.00) g/dL Result Diagrams: 08/30/21 07:20 08/29/21 10:00 Sepsis Event Note - Evaluation Sepsis Screening Result: No Definite Risk - Focused Exam Vital Signs: Vital Signs Temp Pulse Resp BP Pulse Ox 08/30/21 06:27 97.6 F 96 20 128/80 92 L 08/30/21 03:00 97.6 F 75 20 117/78 93 L 08/29/21 22:00 78 20 95 - Problem List Review Problem List Initiated/Reviewed/Updated: Yes - Assessment Assessment:: COVID-19 pneumonia. Hypoxemia Elevated D-dimer. Elevated LFTs. - Plan Plan:: 1. INCENTIVE SPIROMETRY 2. PRONING 15MIN X 3/DAY 3. INCREASE ACTIVITY TOLERATED 4. WEAN O2 TOLERATED 5. CONTINUE ZINC/VIT C/VIT D 6. CONTINUE REMDESIVIR/DECADRON/DUONEBS
[2021-08-30 08:46] LABS: ANION GAP 16.7 mmol/L (5-15); CHLORIDE,CL 110 mmol/L (98-107); SODIUM,NA 145 mmol/L (136-145)
[2021-08-30] MEDS: Albuterol/Ipratropium 3.0-0.5 MG/3 ML Neb Soln NEB PRN ×2 (09:48→14:43)
[2021-08-30] MEDS: Enoxaparin 40 MG/0.4 ML Syringe SUBCUT SCH ×3 (14:42→22:54)
[2021-08-30] MEDS: REMDESIVIR 100 MG in Sodium Chloride 0.9% 250 ML IV SCH ×2 (14:43→16:15)
[2021-08-30] MEDS: Aluminum Hydroxide/Magnesium Hydroxide/Simethicone Susp 30 ML Cup PO PRN (20:23)
[2021-08-31 08:05] LABS: ANION GAP 12.7 mmol/L (5-15); CHLORIDE,CL 109 mmol/L (98-107); SODIUM,NA 145 mmol/L (136-145)
--- NOTE | 2021-08-31 08:09 | PCM.PN ---
- General Info Date of Service: 08/31/21 Functional Status: Reports: Pain Controlled, Tolerating Diet, Ambulating, Urinating, Incentive Spirometry - Review of Systems General: Reports: No Symptoms HEENT: Reports: No Symptoms Pulmonary: Reports: Cough Cardiovascular: Reports: No Symptoms Gastrointestinal: Reports: No Symptoms Genitourinary: Reports: No Symptoms Musculoskeletal: Reports: No Symptoms Skin: Reports: No Symptoms Neurological: Reports: No Symptoms Psychiatric: Reports: No Symptoms - Patient Data Vitals - Most Recent: Last Vital Signs Temp 97.9 F 08/31/21 06:45 Pulse 95 08/31/21 06:45 Resp 24 H 08/31/21 06:45 BP 126/74 08/31/21 06:45 Pulse Ox 92 L 08/31/21 06:45 Weight - Most Recent: 180 lb I&O - Last 24 Hours: Intake & Output 08/30/21 08/31/21 08/31/21 22:59 06:59 14:59 Intake Total 680 200 Output Total 600 Balance 680 -400 Lab Results Last 24 Hours: Laboratory Results - last 24 hr 08/30/21 08/31/21 Range/Units 07:20 07:25 WBC 7.48 (5.00-10.00) 10^3/uL RBC 4.78 (3.80-5.50) 10^6/uL Hgb 13.8 (12.0-16.0) g/dL Hct 41.8 (37.0-47.0) % MCV 87.4 (82.0-92.0) fL MCH 28.9 (27.0-31.0) pg MCHC 33.0 (32.0-36.0) g/dL RDW 14.3 (11.5-14.5) % Plt Count 312 (150-400) 10^3/uL MPV 9.6 (7.4-10.4) fL Immature Gran % (Auto) 4.9 (0.0-5.0) % Neut % (Auto) 75.3 H (50.0-70.0) % Lymph % (Auto) 10.4 L (20.0-40.0) % [place] % (Auto) 8.7 H (2.0-8.0) % Eos % (Auto) 0.4 L (1.0-3.0) % Baso % (Auto) 0.3 (0.0-1.0) % Neut # (Auto) 5.63 (2.50-7.00) 10^3/uL Lymph # (Auto) 0.78 L (1.00-4.00) 10^3/uL [place] # (Auto) 0.65 (0.10-0.80) 10^3/uL Eos # (Auto) 0.03 L (0.10-0.30) 10^3/uL Baso # (Auto) 0.02 (0.00-0.10) 10^3/uL Immature Gran # (Auto) 0.37 (0.00-0.50) 10^3/uL Sodium 145 (136-145) mmol/L Potassium 4.1 (3.5-5.1) mmol/L Chloride 110 H (98-107) mmol/L Carbon Dioxide 22.4 (21.0-32.0) mmol/L Anion Gap 16.7 H (5-15) mmol/L BUN 16 (7-18) mg/dL Creatinine 0.69 (0.51-1.17) mg/dL Est Cr Clr Drug Dosing 85.82 mL/min Estimated GFR (MDRD) > 60 mL/min Glucose 97 (70-140) mg/dL Calcium 7.8 L (8.7-10.3) mg/dL Total Bilirubin 0.9 (0.2-1.0) mg/dL AST 109 H (15-37) U/L ALT 163 H (14-63) U/L Alkaline Phosphatase 196 H (46-116) U/L Total Protein 6.0 L (6.4-8.2) g/dL Albumin 2.62 L (3.40-5.00) g/dL Med Orders - Current: Current Medications Acetaminophen (Acetaminophen 325 Mg Tab) 650 mg PO Q4H PRN PRN Reason: Pain (Mild 1-3)/fever Last Admin: 08/29/21 20:34 Dose: 650 mg Documented by: Al Hydroxide/Mg Hydroxide (Aluminum Hydroxide/Magnesium Hydroxide/Simethicone Susp 30 Ml Cup) 30 ml PO Q6H PRN PRN Reason: Heartburn Last Admin: 08/30/21 20:23 Dose: 30 ml Documented by: Albuterol/Ipratropium (Albuterol/Ipratropium 3.0-0.5 Mg/3 Ml Neb Soln) 3 ml NEB Q4H PRN PRN Reason: Shortness Of Breath/wheezing Last Admin: 08/30/21 14:43 Dose: 3 ml Documented by: Artificial Tears (Carboxymethylcellulose Sodium 0.5% Ophth Soln 15 Ml Bottle) 0 ml EYEBOTH ASDIRECTED PRN PRN Reason: Dry Eyes Last Admin: 08/30/21 08:04 Dose: 1 drop Documented by: Ascorbic Acid (Ascorbic Acid 500 Mg Tab) 1,000 mg PO BID [facility] Last Admin: 08/30/21 20:22 Dose: 1,000 mg Documented by: Cholecalciferol (Cholecalciferol (Vitamin D3) 25 Mcg Tab) 25 mcg PO DAILY [facility] Last Admin: 08/30/21 08:04 Dose: 25 mcg Documented by: Dexamethasone (Dexamethasone 10 Mg/Ml Sdv) 6 mg IVPUSH DAILY [facility] Last Admin: 08/30/21 08:04 Dose: 6 mg Documented by: Enoxaparin Sodium (Enoxaparin 40 Mg/0.4 Ml Syringe) 40 mg SUBCUT Q12H [facility] Last Admin: 08/30/21 22:54 Dose: Not Given Documented by: Remdesivir 100 mg/ Sodium (Chloride) 250 mls @ 250 mls/hr IV Q24H [facility] Last Admin: 08/30/21 16:15 Dose: Not Given Documented by: Ibuprofen (Ibuprofen 600 Mg Tab) 600 mg PO Q6H PRN PRN Reason: Pain (mild 1-3) Last Admin: 08/29/21 01:14 Dose: 600 mg Documented by: Morphine Sulfate (Morphine 2 Mg/Ml Syringe) 2 mg IVPUSH Q2H PRN PRN Reason: Pain (severe 7-10) Sodium Chloride (Sodium Chloride 0.9% 10 Ml Syringe) 10 ml FLUSH Q8HR PRN PRN Reason: keep vein open Zinc Gluconate (Zinc (Zinc Gluconate) 50 Mg Tab) 50 mg PO DAILY [facility] Last Admin: 08/30/21 08:04 Dose: 50 mg Documented by: Discontinued Medications Dexamethasone (Dexamethasone 4 Mg/Ml Sdv) 6 mg IVPUSH ONETIME ONE Stop: 08/27/21 13:15 Last Admin: 08/27/21 13:48 Dose: 6 mg Documented by: Dexamethasone (Dexamethasone 10 Mg/Ml Sdv) 6 mg IVPUSH ONETIME ONE Stop: 08/28/21 16:27 Sodium Chloride (Normal Saline) 1,000 mls @ 999 mls/hr IV .BOLUS ONE Stop: 08/27/21 14:13 Last Admin: 08/27/21 13:25 Dose: 999 mls/hr Documented by: Sodium Chloride (Normal Saline) 100 mls @ 200 mls/hr IV ASDIRECTED [facility] Last Admin: 08/27/21 15:42 Dose: 200 mls/hr Documented by: Sodium Chloride (Normal Saline) 1,000 mls @ 125 mls/hr IV ASDIRECTED [facility] Last Admin: 08/29/21 03:03 Dose: 125 mls/hr Documented by: Remdesivir 200 mg/ Sodium (Chloride) 250 mls @ 250 mls/hr IV ONETIME ONE Stop: 08/27/21 16:27 Last Admin: 08/27/21 17:14 Dose: 250 mls/hr Documented by: Iopamidol (Iopamidol 755 Mg/Ml 75 Ml Bottle) 75 ml IVPUSH ONETIME ONE Stop: 08/27/21 14:49 Last Admin: 08/27/21 15:42 Dose: 75 ml Documented by: Ketorolac Tromethamine (Ketorolac 30 Mg/Ml Sdv) 30 mg IVPUSH ONETIME ONE Stop: 08/27/21 13:43 Last Admin: 08/27/21 13:48 Dose: 30 mg Documented by: Ketorolac Tromethamine (Ketorolac 30 Mg/Ml Sdv) Confirm Administered Dose 30 mg .ROUTE .STK-MED ONE Stop: 08/27/21 13:44 Last Admin: 08/27/21 13:49 Dose: Not Given Documented by: - Exam Quality Assessment: Supplemental Oxygen, DVT Prophylaxis General: Alert, Oriented HEENT: Pupils Equal, Pupils Reactive, EOMI, Mucous Membr. Moist/[place] Neck: Supple Lungs: Clear to Auscultation, Normal Respiratory Effort Cardiovascular: Regular Rate, Regular Rhythm GI/Abdominal Exam: Normal Bowel Sounds, Soft, Non-Tender, No Organomegaly, No Distention, No Mass, Pelvis Stable Back Exam: Normal Inspection, Full Range of Motion Extremities: Normal Inspection, Normal Range of Motion, Non-Tender, No Pedal Edema, Normal Capillary Refill Skin: Warm, Dry, Intact Wound/Incisions: Healing Well Neurological: No New Focal Deficit Psy/Mental Status: Alert, Normal Affect, Normal Mood - Patient Data Lab Results Last 24 hrs: Laboratory Results - last 24 hr 08/30/21 08/31/21 Range/Units 07:20 07:25 WBC 7.48 (5.00-10.00) 10^3/uL RBC 4.78 (3.80-5.50) 10^6/uL Hgb 13.8 (12.0-16.0) g/dL Hct 41.8 (37.0-47.0) % MCV 87.4 (82.0-92.0) fL MCH 28.9 (27.0-31.0) pg MCHC 33.0 (32.0-36.0) g/dL RDW 14.3 (11.5-14.5) % Plt Count 312 (150-400) 10^3/uL MPV 9.6 (7.4-10.4) fL Immature Gran % (Auto) 4.9 (0.0-5.0) % Neut % (Auto) 75.3 H (50.0-70.0) % Lymph % (Auto) 10.4 L (20.0-40.0) % [place] % (Auto) 8.7 H (2.0-8.0) % Eos % (Auto) 0.4 L (1.0-3.0) % Baso % (Auto) 0.3 (0.0-1.0) % Neut # (Auto) 5.63 (2.50-7.00) 10^3/uL Lymph # (Auto) 0.78 L (1.00-4.00) 10^3/uL [place] # (Auto) 0.65 (0.10-0.80) 10^3/uL Eos # (Auto) 0.03 L (0.10-0.30) 10^3/uL Baso # (Auto) 0.02 (0.00-0.10) 10^3/uL Immature Gran # (Auto) 0.37 (0.00-0.50) 10^3/uL Sodium 145 (136-145) mmol/L Potassium 4.1 (3.5-5.1) mmol/L Chloride 110 H (98-107) mmol/L Carbon Dioxide 22.4 (21.0-32.0) mmol/L Anion Gap 16.7 H (5-15) mmol/L BUN 16 (7-18) mg/dL Creatinine 0.69 (0.51-1.17) mg/dL Est Cr Clr Drug Dosing 85.82 mL/min Estimated GFR (MDRD) > 60 mL/min Glucose 97 (70-140) mg/dL Calcium 7.8 L (8.7-10.3) mg/dL Total Bilirubin 0.9 (0.2-1.0) mg/dL AST 109 H (15-37) U/L ALT 163 H (14-63) U/L Alkaline Phosphatase 196 H (46-116) U/L Total Protein 6.0 L (6.4-8.2) g/dL Albumin 2.62 L (3.40-5.00) g/dL Result Diagrams: 08/31/21 07:25 08/30/21 07:20 Sepsis Event Note - Evaluation Sepsis Screening Result: No Definite Risk - Focused Exam Vital Signs: Vital Signs Temp Pulse Resp BP Pulse Ox 08/31/21 06:45 97.9 F 95 24 H 126/74 92 L 08/31/21 03:00 98.2 F 81 24 H 125/81 93 L 08/30/21 21:52 97.7 F 85 20 136/92 H 94 L - Problem List Review Problem List Initiated/Reviewed/Updated: Yes - Assessment Assessment:: COVID-19 pneumonia. Hypoxemia- IMPROVING- PT ON 1.5L [place] Elevated D-dimer. Elevated LFTs. - Plan Plan:: 1. INCENTIVE SPIROMETRY 2. PRONING 15MIN X 3/DAY 3. INCREASE ACTIVITY TOLERATED 4. WEAN O2 TOLERATED 5. CONTINUE ZINC/VIT C/VIT D 6. CONTINUE REMDESIVIR- LAST DOSE TOMORROW- DECADRON/DUONEBS 7. PLAN TO DISCHARGE IN AM- ARRANGE SUPPLEMENTAL O2 NEEDED
[2021-08-31] MEDS: Ascorbic Acid 500 MG Tab PO SCH ×2 (09:04→20:27)
[2021-08-31] MEDS: Cholecalciferol (Vitamin D3) 25 MCG Tab PO SCH (09:05)
[2021-08-31] MEDS: Dexamethasone 10 MG/ML SDV IVPUSH SCH (09:05)
[2021-08-31] MEDS: Zinc (Zinc Gluconate) 50 MG Tab PO SCH (09:05)
[2021-08-31] MEDS: Enoxaparin 40 MG/0.4 ML Syringe SUBCUT SCH ×2 (11:41→22:52)
[2021-08-31] MEDS: REMDESIVIR 100 MG in Sodium Chloride 0.9% 250 ML IV SCH (16:22)
[2021-08-31] MEDS: Aluminum Hydroxide/Magnesium Hydroxide/Simethicone Susp 30 ML Cup PO PRN (22:58)
[2021-09-01 07:07] VITALS: BP 120/80; PULSE 78
[2021-09-01 08:18] LABS: ANION GAP 12.8 mmol/L (5-15); CHLORIDE,CL 107 mmol/L (98-107); SODIUM,NA 144 mmol/L (136-145)
[2021-09-01] MEDS: Ascorbic Acid 500 MG Tab PO SCH (08:46)
[2021-09-01] MEDS: Zinc (Zinc Gluconate) 50 MG Tab PO SCH (08:47)
[2021-09-01] MEDS: Cholecalciferol (Vitamin D3) 25 MCG Tab PO SCH (08:47)
--- NOTE | 2021-09-01 09:29 | PCM.DCSUM1 ---
Discharge Summary - Hospital Course Free Text/Narrative:: Admission Date: 08/27/2021 Discharge Date: 09/01/2021 Disposition: Home, Self Care CODE STATUS: Full Code Admission Diagnoses: Covid pneumonia with hypoxemia Covid Hepatitis Discharge Diagnoses: Covid Pneumonia, hypoxemia resolved Covid hepatitis, improving slowly Secondary Diagnoses: Acid Reflux Hospital Course: Nohelia was hospitalized after presentation to the ER for difficulty breathing and O2 sats of 85% on room air in the ER. She tested positive for COVID on 08/18 after thinking she had a sinus infection for 2-3 days. She was not a candidate for monoclonal antibody infusion. She did conservative treatment at home but developed "facial swelling and swollen glands" as well as poor appetite, fatigue and difficulty taking a deep breath. She had a telemedicine visit on 08/27 where it was recommended she present to the ER. In the ER, sats were 85% on RA and improved with oxygen. She was admitted for further therapy and for Remdesivir. She at times required up to 8L of O2 via NC. At the time of discharge she doesn't feel back to baseline but overall feels better and no longer requires O2. She is going to be discharged to home. She was treated with Remdesivir x 5 days, dexamethasone 6 mg IV x 5 days, Zinc 50 mg PO daily, Vit D 25 mcg PO daily and Vit C 1,000 mg PO BID. She was on enoxaparin 40 mg subcut BID while hospitalized. She had an elevated D-dimer and CT chest was done which was negative for PE. Discharge to home with no new medications. Modified [place] Scale: No Signif.Disability Despite Sympt.Able to Carry Out Usual Act./Duties Modified [place] Scale Score: 1 - Discharge Data Discharge Date: 09/01/21 Discharge Disposition: Home, Self-Care 01 Condition: Good - Referral to Home Health Primary Care Physician: Isha Perez MD - Patient Summary/Data Recommended Follow-up Testing/Procedures: Follow-up with Dr. Titus in clinic in 1 week with repeat hepatic function panel. - Patient Instructions Diet: Regular Diet as Tolerated Activity: Rest and Relax Today - Discharge Plan *PRESCRIPTION DRUG MONITORING PROGRAM REVIEWED*: Not Applicable *COPY OF PRESCRIPTION DRUG MONITORING REPORT IN PATIENT HAIDER: Not Applicable Home Medications: Home Meds Famotidine 20 mg PO DAILY 08/27/21 [History] Forms: ED Department Discharge Referrals: Isha Perez MD [Primary Care Provider] - - Discharge Summary/Plan Comment DC Time >30 min.: No Total # of Minutes for Discharge Time: 17 - General Info Date of Service: 09/01/21 Admission Dx/Problem (Free Text: 1. - Patient Data Vitals - Most Recent: Last Vital Signs Temp 97.8 F 09/01/21 07:00 Pulse 78 09/01/21 07:00 Resp 20 09/01/21 07:00 BP 120/80 09/01/21 07:00 Pulse Ox 92 L 09/01/21 07:00 Weight - Most Recent: 180 lb I&O - Last 24 hours: Intake & Output 08/31/21 09/01/21 09/01/21 22:59 06:59 14:59 Intake Total 800 150 Balance 800 150 Lab Results - Last 24 hrs: Laboratory Results - last 24 hr 09/01/21 09/01/21 Range/Units 07:45 07:45 WBC 5.87 (5.00-10.00) 10^3/uL RBC 4.95 (3.80-5.50) 10^6/uL Hgb 13.9 (12.0-16.0) g/dL Hct 43.0 (37.0-47.0) % MCV 86.9 (82.0-92.0) fL MCH 28.1 (27.0-31.0) pg MCHC 32.3 (32.0-36.0) g/dL RDW 14.3 (11.5-14.5) % Plt Count 343 (150-400) 10^3/uL MPV 9.8 (7.4-10.4) fL Add Manual Diff Yes Neutrophils % (Manual) 72 H (50-70) % Lymphocytes % (Manual) 16 L (20-40) % Monocytes % (Manual) 11 H (2-8) % Eosinophils % (Manual) 1 (1-3) % Platelet Estimate Adequate Sodium 144 (136-145) mmol/L Potassium 3.6 (3.5-5.1) mmol/L Chloride 107 (98-107) mmol/L Carbon Dioxide 27.8 (21.0-32.0) mmol/L Anion Gap 12.8 (5-15) mmol/L BUN 15 (7-18) mg/dL Creatinine 0.65 (0.51-1.17) mg/dL Est Cr Clr Drug Dosing 91.10 mL/min Estimated GFR (MDRD) > 60 mL/min Glucose 105 (70-140) mg/dL Calcium 7.8 L (8.7-10.3) mg/dL Total Bilirubin 0.9 (0.2-1.0) mg/dL AST 50 H (15-37) U/L ALT 151 H (14-63) U/L Alkaline Phosphatase 166 H (46-116) U/L Total Protein 5.7 L (6.4-8.2) g/dL Albumin 2.55 L (3.40-5.00) g/dL Med Orders - Current: Current Medications Acetaminophen (Acetaminophen 325 Mg Tab) 650 mg PO Q4H PRN PRN Reason: Pain (Mild 1-3)/fever Last Admin: 08/29/21 20:34 Dose: 650 mg Documented by: Al Hydroxide/Mg Hydroxide (Aluminum Hydroxide/Magnesium Hydroxide/Simethicone Susp 30 Ml Cup) 30 ml PO Q6H PRN PRN Reason: Heartburn Last Admin: 08/31/21 22:58 Dose: 30 ml Documented by: Albuterol/Ipratropium (Albuterol/Ipratropium 3.0-0.5 Mg/3 Ml Neb Soln) 3 ml NEB Q4H PRN PRN Reason: Shortness Of Breath/wheezing Last Admin: 08/30/21 14:43 Dose: 3 ml Documented by: Artificial Tears (Carboxymethylcellulose Sodium 0.5% Ophth Soln 15 Ml Bottle) 0 ml EYEBOTH ASDIRECTED PRN PRN Reason: Dry Eyes Last Admin: 08/30/21 08:04 Dose: 1 drop Documented by: Ascorbic Acid (Ascorbic Acid 500 Mg Tab) 1,000 mg PO BID [facility] Last Admin: 09/01/21 08:46 Dose: 1,000 mg Documented by: Cholecalciferol (Cholecalciferol (Vitamin D3) 25 Mcg Tab) 25 mcg PO DAILY [facility] Last Admin: 09/01/21 08:47 Dose: 25 mcg Documented by: Enoxaparin Sodium (Enoxaparin 40 Mg/0.4 Ml Syringe) 40 mg SUBCUT Q12H [facility] Last Admin: 08/31/21 22:52 Dose: 40 mg Documented by: Ibuprofen (Ibuprofen 600 Mg Tab) 600 mg PO Q6H PRN PRN Reason: Pain (mild 1-3) Last Admin: 08/29/21 01:14 Dose: 600 mg Documented by: Morphine Sulfate (Morphine 2 Mg/Ml Syringe) 2 mg IVPUSH Q2H PRN PRN Reason: Pain (severe 7-10) Sodium Chloride (Sodium Chloride 0.9% 10 Ml Syringe) 10 ml FLUSH Q8HR PRN PRN Reason: keep vein open Zinc Gluconate (Zinc (Zinc Gluconate) 50 Mg Tab) 50 mg PO DAILY [facility] Last Admin: 09/01/21 08:47 Dose: 50 mg Documented by: Discontinued Medications Dexamethasone (Dexamethasone 4 Mg/Ml Sdv) 6 mg IVPUSH ONETIME ONE Stop: 08/27/21 13:15 Last Admin: 08/27/21 13:48 Dose: 6 mg Documented by: Dexamethasone (Dexamethasone 10 Mg/Ml Sdv) 6 mg IVPUSH ONETIME ONE Stop: 08/28/21 16:27 Dexamethasone (Dexamethasone 10 Mg/Ml Sdv) 6 mg IVPUSH DAILY [facility] Last Admin: 08/31/21 09:05 Dose: 6 mg Documented by: Sodium Chloride (Normal Saline) 1,000 mls @ 999 mls/hr IV .BOLUS ONE Stop: 08/27/21 14:13 Last Admin: 08/27/21 13:25 Dose: 999 mls/hr Documented by: Sodium Chloride (Normal Saline) 100 mls [facility] Last Admin: 08/27/21 15:42 Dose: 200 mls/hr Documented by: Sodium Chloride (Normal Saline) 1,000 mls @ 125 mls[facility] Last Admin: 08/29/21 03:03 Dose: 125 mls/hr Documented by: Remdesivir 200 mg/ Sodium (Chloride) 250 mls @ 250 mls/hr IV ONETIME ONE Stop: 08/27/21 16:27 Last Admin: 08/27/21 17:14 Dose: 250 mls/hr Documented by: Remdesivir 100 mg/ Sodium (Chloride) 250 mls @ 250 mls/hr IV Q24H [facility] Last Admin: 08/31/21 16:22 Dose: 250 mls/hr Documented by: Iopamidol (Iopamidol 755 Mg/Ml 75 Ml Bottle) 75 ml IVPUSH ONETIME ONE Stop: 08/27/21 14:49 Last Admin: 08/27/21 15:42 Dose: 75 ml Documented by: Ketorolac Tromethamine (Ketorolac 30 Mg/Ml Sdv) 30 mg IVPUSH ONETIME ONE Stop: 08/27/21 13:43 Last Admin: 08/27/21 13:48 Dose: 30 mg Documented by: Ketorolac Tromethamine (Ketorolac 30 Mg/Ml Sdv) Confirm Administered Dose 30 mg .ROUTE .STK-MED ONE Stop: 08/27/21 13:44 Last Admin: 08/27/21 13:49 Dose: Not Given Documented by: - Exam General: Reports: Alert, Oriented, Cooperative, No Acute Distress Neck: Reports: Supple, Trachea Midline Lungs: Reports: Clear to Auscultation, Normal Respiratory Effort Cardiovascular: Reports: Regular Rate, Regular Rhythm, No Murmurs
== END 2021-09-01 10:15 | disposition home or self-care (01) | DRG 137 ==
LOC: KA.ED 12:55 → KA.MS 16:16
PROVIDERS: ADMIT Physician Assistant Medical; ATTEND Internal Medicine
PROC: 8E0ZXY6 Isolation (ICD-10-PCS; principal; 2021-08-27)
PROC: XW033E5 Introduction of Remdesivir Anti-infective into Peripheral Vein, Percutaneous Approach, New Technology Group 5 (ICD-10-PCS; 2021-08-27)
PROC: 3E0333Z Introduction of Anti-inflammatory into Peripheral Vein, Percutaneous Approach (ICD-10-PCS; 2021-08-27)
PROC: 3E0333Z Introduction of Anti-inflammatory into Peripheral Vein, Percutaneous Approach (ICD-10-PCS; 2021-08-28)
DX: U07.1 COVID-19 (principal); J12.82 Pneumonia due to coronavirus disease 2019; H54.7 Unspecified visual loss; R79.89 Other specified abnormal findings of blood chemistry; B17.8 Other specified acute viral hepatitis; Z90.49 Acquired absence of other specified parts of digestive tract
CPT/HCPCS: 36415; 71045; 71275; 80053; 83605; 85025; 85379; 96374; 96375; 99223; 99232; 99233; 99285-25; A9270-GY; J1100; J1650; J1885; J7030; J7050; J7620-GY; Q9967